=== PATIENT | male | born 1965 ===

== ENCOUNTER 2021-06-21 16:05 | Emergency (ER) | payer OTHER, BC ==
[2021-06-21] MEDS ORDERED: Metoclopramide 10 MG/2 ML SDV IVPUSH ONE (16:55)
[2021-06-21] MEDS ORDERED: HYDROmorphone 1 MG/ML Syringe IVPUSH ONE ×2 (16:55→18:59)
[2021-06-21 18:42] VITALS: BP 121/82; PULSE 94
== END 2021-06-21 19:40 | disposition home or self-care (01) ==
LOC: JD.ED 16:05
DX: S82.851A Displaced trimalleolar fracture of right lower leg, initial encounter for closed fracture (principal); W00.0XXA Fall on same level due to ice and snow, initial encounter
CPT/HCPCS: 73590; 73610; 96374; 96375; 96376; 99283; J1170; J2765; 29515; 99285

== ENCOUNTER 2021-06-30 10:32 | Day surgery (SDC) | payer OTHER, BC ==
[~2021-06-30 10:32] MED LIST: Dexamethasone 4 MG/ML 5 ML MDV ONE; EPINEPHrine 1 MG/ML SDV ONE; Lactated Ringers 1,000 ML IV SCH; Lidocaine 1% 4 ML ONE; Lidocaine 1%/Sod Bicarbonate in NS 8.4% 1 ML Syringe IDERM PRN; Midazolam 1 MG/ML 2 ML SDV ONE; Ondansetron 4 MG/2 ML SDV ONE; Propofol 200 MG/20 ML SDV ONE; Ropivacaine 0.5% 5 MG/ML 30 ML SDV ONE; Sodium Chloride 0.9% 10 ML Syringe FLUSH PRN; Sodium Chloride 0.9% 10 ML Syringe FLUSH SCH; fentaNYL 250 MCG/5 ML SDV ONE
[2021-06-30] MEDS ORDERED: Ondansetron 4 MG/2 ML SDV IVPUSH PRN ×2 (10:42→12:45)
[2021-06-30] MEDS ORDERED: Propofol 200 MG/20 ML SDV ONE (11:43)
[2021-06-30] MEDS ORDERED: ceFAZolin 1 GM Vial ONE (12:01)
[2021-06-30] MEDS ORDERED: HYDROmorphone 0.5 MG/0.5 ML Syringe IVPUSH PRN (12:45)
[2021-06-30] MEDS ORDERED: fentaNYL 100 MCG/2 ML SDV IVPUSH PRN (12:45)
[2021-06-30] MEDS: HYDROmorphone 0.5 MG/0.5 ML Syringe IVPUSH PRN ×2 (14:22→14:36)
[2021-06-30] MEDS: fentaNYL 100 MCG/2 ML SDV IVPUSH PRN ×3 (14:25→14:57)
[2021-06-30] MEDS ORDERED: Acetaminophen/HYDROcodone 325-10 MG Tab PO ONE (14:39)
[2021-06-30] MEDS ORDERED: Acetaminophen/HYDROcodone 325-5 MG Tab PO ONE (15:03)
[2021-06-30] MEDS ORDERED: Ketorolac 15 MG/ML SDV IVPUSH ONE (16:08)
[2021-06-30 18:01] VITALS: BP 105/74; PULSE 78
== END 2021-06-30 17:35 | disposition home or self-care (01) ==
LOC: JD.SDS 10:32
PROVIDERS: ATTEND Orthopaedic Surgery
DX: S82.851A Displaced trimalleolar fracture of right lower leg, initial encounter for closed fracture (principal); E78.00 Pure hypercholesterolemia, unspecified; H54.7 Unspecified visual loss; Z79.01 Long term (current) use of anticoagulants; Z79.899 Other long term (current) drug therapy; X58.XXXA Exposure to other specified factors, initial encounter; Z98.890 Other specified postprocedural states; Z87.891 Personal history of nicotine dependence
CPT/HCPCS: 27822; 76000; A9270; C1713; C1769; C1776; J0171; J0690; J1100; J1170; J1885; J2250; J2405; J2704; J2795; J3010; J7120; 01480; 64447; 76942